=== PATIENT | female | born 1970 | race Caucasian/White ===

== ENCOUNTER 2021-01-15 16:47 | Emergency (ER) | payer OTHER ==
[~2021-01-15] VITALS: Ht 160 cm; Wt 77.3 kg
[2021-01-15 16:57] VITALS: BP 112/70
== END 2021-01-15 19:00 | disposition left against medical advice (07) ==
LOC: EMS 16:53
DX: K08.89 Other specified disorders of teeth and supporting structures (principal); Z53.21 Procedure and treatment not carried out due to patient leaving prior to being seen by health care provider